=== PATIENT | male | born 1970 | race Caucasian/White ===

== ENCOUNTER 2016-08-24 09:11 | Emergency (ER) | payer MEDICARE, OTHER ==
[2016-08-24] MEDS ORDERED: KETOROLAC 30 MG/ML VIAL (J1885) As Ordered ONE (09:40)
--- NOTE | 2016-08-24 10:48 | REP ---
Three-view right shoulder series 08/24/2016 Indication: Trauma Findings: Patient has had previous distal apical resection and had history of previous acromioclavicular joint arthritis. There is no residual hypertrophic bone formation or subacromial spurring identified. Shoulder is without acute fracture or dislocation. The scapula is intact. Impression: Postsurgical changes with prior distal clavicle resection and previous subacromial decompression for impingement as noted on operative note 11/02/2003 for surgery performed at [facility] by Dr. Stanley There is no acute fracture, subluxation or dislocation within the right shoulder Signed by Maryana Natarajan MD 08/24/2016 10:40 A
--- NOTE | 2016-08-24 11:27 | EDDOCDS ---
Physician Documentation [facility] Name: Rafael Goldstein Age: 46 yrs Sex: Male : 1970 Arrival Date: 08/24/2016 Time: 09:11 Bed TR8 Private MD: Marcos Arevalo Disposition: 08/24/16 10:44 Discharged to Home/Self Care. Impression: Unspecified sprain of right shoulder joint. - Condition is Stable. - Discharge Instructions: Shoulder Pain, Aebm-ol-Liep, Shoulder Sprain. - Prescriptions for Mobic 7.5 mg Oral Tablet - take 1 tablet by ORAL route once daily take with food; 20 tablet. [place] 5- 325 mg Oral Tablet - take 1 tablet by ORAL route every 6 hours As needed MDD: 4 tabs; 20 tablet. - Medication Reconciliation, Local Pharmacy Hours form. - Follow up: Barry Stanley; When: 1 - 2 days; Reason: Further diagnostic work-up, Recheck today's complaints, Continuance of care. Follow up: Emergency Department; Reason: Worsening of conditions. - Problem is new. - Symptoms have improved. Historical: - Allergies: no known allergies; - Home Meds: 1. ramipril 2.5 mg Oral cap once daily 2. montelukast 10 mg oral tab once daily 3. Invokana 100 mg oral tab once daily 4. metformin 500 mg Oral Tb24 2 tabs once daily 5. levocetirizine 5 mg oral tab once daily 6. aspirin 81 mg Oral TbEC once daily - PMHx: Diabetes - NIDDM: controlled; - PSHx: right rotator cuff; right leg; bilateral wrists; - Social history: Smoking status: Patient states former smoker of tobacco. No barriers to communication noted, The patient speaks fluent Mauritian, Speaks appropriately for age. - Family history: Not pertinent. - : The pt / caregiver states he / she is not on anticoagulants. Home medication list is obtained from the patient. - Exposure Risk Screening:: None identified. Vital Signs: 08/24 09:13 BP 149 / 84; Pulse 86; Resp 18 S; Temp 97.6(O); Pulse Ox 98% on R/A; Weight 122.47 kg / dd6 270 lbs (R); Height 5 ft. 11 in. (180.34 cm) (R); 10:59 BP 120 / 76; Pulse 70; Resp 18; Temp 98.6(O); Pulse Ox 94% on R/A; Pain 0/10; ar3 11:24 Pain 1/10; ms18 09:13 Body Mass Index 37.66 (122.47 kg, 180.34 cm) dd6 Procedures: 10:42 Fracture care/splinting: Splint applied to right shoulder using sling, applied by ef1 nurse. Examined by me, post splint application: neurovascular intact, 2+ distal pulses palpable, brisk capillary refill noted, Patient tolerated well. MDM: 09:38 Ice Pack ordered. ef1 09:38 ketorolac 60 mg IM once ordered. ef1 09:39 Shoulder, Complete Ordered. EDMS 09:45 [facility] Payment Agreement was scanned into [employer] and attached to record. jp5 09:45 Financial registration complete. jp5 10:42 Sling ordered. ef1 Administered Medications: 09:45 Drug: ketorolac 60 mg [ketorolac 30 mg/mL (1 mL) injection solution (2 mL)] Route: IM; jc4 Site: right gluteus; 11:24 Follow up: Pain 1/10 Adult; Response: Pain is decreased ms18 Signatures: Dispatcher [employer] EDMS Adelia Brown PA-C PA-C ef1 Mena Paiz, RN RN jc4 Shaila Ortega,RN RN Gerri Blair RN RN ms18 Olive Walker jp5 The chart was reviewed and I authenticate all verbal orders and agree with the evaluation and treatment provided.Attachments: 09:45 [facility] Payment Agreement jp5 MTDD
--- NOTE | 2016-08-24 11:27 | EDDOCDS ---
Nurse's Notes [facility] Name: Rafael Goldstein Age: 46 yrs Sex: Male : 1970 Arrival Date: 08/24/2016 Time: 09:11 Bed TR8 Private MD: Marcos Arevalo Diagnosis: Unspecified sprain of right shoulder joint Presentation: 08/24 09:17 Presenting complaint: Patient states: while putting [place] decorations away in the ead attic yesterday, pt felt a pop in the right shoulder. Pt reports hx of right rotator cuff repair. Limited ROM to right shoulder. Adult Sepsis Screening: The patient does not have new or worsening altered mentation. Patient's respiratory rate is less than 22. Systolic blood pressure is greater than 100. Patient has a qSOFA score of 0- Negative Sepsis Screen. Suicide/Homicide risk assessment- the patient denies having any suicidal and/or homicidal ideations and does not present with any other emotional, behavioral or mental health complaints. Status: Patient is not a health equipment servicer or dependent. Transition of care: patient was not received from another setting of care. 09:17 Acuity: MARIANA Level 4 ead 09:17 Method Of Arrival: Walkin/Carried/Asstd ead Triage Assessment: 09:21 General: Appears in no apparent distress, uncomfortable, Behavior is appropriate for ead age, cooperative, pleasant. Pain: Location: anterior aspect of right shoulder and right bicep Pain currently is 6 out of 10 on a pain scale. Neurological: No deficits noted. Respiratory: Airway is patent Respiratory effort is even, unlabored. Derm: Skin is pink, warm & dry. Musculoskeletal: Range of motion limited in right shoulder Reports pain in anterior aspect of right shoulder and right bicep. 09:23 Pt Declines HIV testing. ead Historical: - Allergies: no known allergies; - Home Meds: 1. ramipril 2.5 mg Oral cap once daily 2. montelukast 10 mg oral tab once daily 3. Invokana 100 mg oral tab once daily 4. metformin 500 mg Oral Tb24 2 tabs once daily 5. levocetirizine 5 mg oral tab once daily 6. aspirin 81 mg Oral TbEC once daily - PMHx: Diabetes - NIDDM: controlled; - PSHx: right rotator cuff; right leg; bilateral wrists; - Social history: Smoking status: Patient states former smoker of tobacco. No barriers to communication noted, The patient speaks fluent Yoruba, Speaks appropriately for age. - Family history: Not pertinent. - : The pt / caregiver states he / she is not on anticoagulants. Home medication list is obtained from the patient. - Exposure Risk Screening:: None identified. Screenin:22 Screening information is obtained from the patient. Fall risk: No risks identified. ead Assistance ADL's: requires no assistance with activities of daily living. Abuse/DV Screen: The patient / caregiver reports he/she is: not in a situation that causes fear, pain or injury. Nutritional screening: No deficits noted. Advance Directives: Currently, there is a health care proxy, Caitlin Goldstein (). There is no active DNR order. There is no living will. There is no Power of Sewer. information regarding advance directives can be obtained from Caitlin Goldstein () [phone]. home support is adequate. Assessment: 09:45 General: Appears uncomfortable. Pain: Pain currently is 6 out of 10 on a pain scale. jc4 Neurological: Level of Consciousness is awake, alert, Oriented to person, place, time. Respiratory: Airway is patent Respiratory effort is even, unlabored, Respiratory pattern is regular, symmetrical. Derm: Skin is pink, warm & dry. Musculoskeletal: Reports pain in anterior aspect of right shoulder radiation to right tricep. 11:25 General: Appears in no apparent distress, comfortable, Behavior is appropriate for age, ms18 cooperative, pleasant. Pain: Location: right shoulder Pain currently is 1 out of 10 on a pain scale. Aggravated by movement. Neurological: No deficits noted. Respiratory: No deficits noted. Derm: Skin is pink, warm & dry. Vital Signs: 09:13 BP 149 / 84; Pulse 86; Resp 18 S; Temp 97.6(O); Pulse Ox 98% on R/A; Weight 122.47 kg dd6 (R); Height 5 ft. 11 in. (180.34 cm) (R); 10:59 BP 120 / 76; Pulse 70; Resp 18; Temp 98.6(O); Pulse Ox 94% on R/A; Pain 0/10; ar3 11:24 Pain 1/10; ms18 09:13 Body Mass Index 37.66 (122.47 kg, 180.34 cm) dd6 Vitals: 09:13 Log In Time: August 24, 2016 at 09:11. dd6 ED Course: 09:12 Patient visited by Galdino Mcbride PCA. dd6 09:12 Marcos Arevalo is Private Physician. dd6 09:12 Patient moved to Waiting dd6 09:14 Patient moved to Pre RCE dd6 09:19 Triage Initiated ead 09:23 Patient moved to Triage 2 ead 09:24 Adelia Brown PA-C is PHCP. ef1 09:25 Giselle Lucas MD is Attending Physician. ef1 09:25 Patient visited by Adelia Brown PA-C. ef1 09:42 The patient / caregiver is instructed regarding the plan of care and ED course. jc4 09:45 [facility] Payment Agreement was scanned into [employer] and attached to record. jp5 09:46 Patient moved to TR1 jc4 10:09 Patient visited by Adelia Brown PA-C. ef1 10:42 Patient visited by Adelia Brown PA-C. ef1 10:44 Barry Stanley is Referral Physician. ef1 10:45 Patient moved to PR1 / 25 jc4 10:59 Sling applied to right arm. ar3 11:00 Patient visited by Ashley Mccoy PCA. ar3 11:20 Shoulder, Complete Returned. EDMS 11:24 Patient moved to TR8 ms18 11:25 Accompanied by Family Member, Patient has correct armband on for positive ms18 identification. Property sent home with patient. :Personal belongings accompany Pt. 11:25 No IV's were initiated during this patient's visit. No procedures done that require ms18 assistance. Sling applied to right arm. Patient with positive distal sensation and brisk distal capillary refill after application. Administered Medications: 09:45 Drug: ketorolac 60 mg [ketorolac 30 mg/mL (1 mL) injection solution (2 mL)] Route: IM; jc4 Site: right gluteus; 11:24 Follow up: Pain /10 Adult; Response: Pain is decreased ms18 Order Results: Radiology Order: Shoulder, Complete Test: Shoulder, Complete REASON FOR EXAMINATION: Trauma; Three-view right shoulder series 08/24/2016; ; Indication: Trauma; ; Findings: Patient has had previous distal apical resection and had history of; previous acromioclavicular joint arthritis. There is no residual hypertrophic; bone formation or subacromial spurring identified. Shoulder is without acute; fracture or dislocation. The scapula is intact.; ; Impression:; ; Postsurgical changes with prior distal clavicle resection and previous; subacromial decompression for impingement as noted on operative note 11/02/2003; for surgery performed at [facility] by Dr. Stanley; ; There is no acute fracture, subluxation or dislocation within the right shoulder; ; ; Signed by; Maryana Natarajan MD 08/24/2016 10:40 A; Outcome: 10:44 Discharge ordered by Provider. ef1 11:25 Discharge Assessment: Patient awake, alert and oriented x 3. No cognitive and/or ms18 functional deficits noted. Patient verbalized understanding of disposition instructions. patient administered narcotics - no. The following High Risk Discharge criteria are identified: None. Discharged to home ambulatory, with family. Condition: good Condition: stable Condition: improved. Discharge instructions given to patient, Instructed on discharge instructions, follow up and referral plans. medication usage, Demonstrated understanding of instructions, medications, Pt was receptive of discharge instructions/ teaching. Prescriptions given X 2. No special radiology studies were completed. 11:26 Patient left the ED. ms18 Signatures: Dispatcher MedHost EDMS Galdino Mcbride, HEAD CHARGER HEAD CHARGER dd6 Adelia Brown, PAChristinaC PA-C ef1 Ashley Mccoy, HEAD CHARGER HEAD CHARGER ar3 Mena Paiz RN RN jc4 Shaila Ortega RN RN ead Smith, Mallory, RN RN ms18 Olive Walker jp5 [facility]
--- NOTE | 2016-08-26 12:27 | EDDOCDS ---
Physician Documentation [facility] Name: Rafael Goldstein Age: 46 yrs Sex: Male : 1970 Arrival Date: 08/24/2016 Time: 09:11 Bed TR8 Private MD: Marcos Arevalo Disposition: 08/24/16 10:44 Discharged to Home/Self Care. Impression: Unspecified sprain of right shoulder joint. - Condition is Stable. - Discharge Instructions: Shoulder Pain, Dsrm-mi-Htoz, Shoulder Sprain. - Prescriptions for Mobic 7.5 mg Oral Tablet - take 1 tablet by ORAL route once daily take with food; 20 tablet. [place] 5- 325 mg Oral Tablet - take 1 tablet by ORAL route every 6 hours As needed MDD: 4 tabs; 20 tablet. - Medication Reconciliation, Local Pharmacy Hours form. - Follow up: Barry Stanley; When: 1 - 2 days; Reason: Further diagnostic work-up, Recheck today's complaints, Continuance of care. Follow up: Emergency Department; Reason: Worsening of conditions. - Problem is new. - Symptoms have improved. Historical: - Allergies: no known allergies; - Home Meds: 1. ramipril 2.5 mg Oral cap once daily 2. montelukast 10 mg oral tab once daily 3. Invokana 100 mg oral tab once daily 4. metformin 500 mg Oral Tb24 2 tabs once daily 5. levocetirizine 5 mg oral tab once daily 6. aspirin 81 mg Oral TbEC once daily - PMHx: Diabetes - NIDDM: controlled; - PSHx: right rotator cuff; right leg; bilateral wrists; - Social history: Smoking status: Patient states former smoker of tobacco. No barriers to communication noted, The patient speaks fluent [place], Speaks appropriately for age. - Family history: Not pertinent. - : The pt / caregiver states he / she is not on anticoagulants. Home medication list is obtained from the patient. - Exposure Risk Screening:: None identified. Vital Signs: 08/24 09:13 BP 149 / 84; Pulse 86; Resp 18 S; Temp 97.6(O); Pulse Ox 98% on R/A; Weight 122.47 kg / dd6 270 lbs (R); Height 5 ft. 11 in. (180.34 cm) (R); 10:59 BP 120 / 76; Pulse 70; Resp 18; Temp 98.6(O); Pulse Ox 94% on R/A; Pain 0/10; ar3 11:24 Pain 1/10; ms18 09:13 Body Mass Index 37.66 (122.47 kg, 180.34 cm) dd6 Procedures: 10:42 Fracture care/splinting: Splint applied to right shoulder using sling, applied by ef1 nurse. Examined by me, post splint application: neurovascular intact, 2+ distal pulses palpable, brisk capillary refill noted, Patient tolerated well. MDM: 09:38 Ice Pack ordered. ef1 09:38 ketorolac 60 mg IM once ordered. ef1 09:39 Shoulder, Complete Ordered. EDMS 09:45 [facility] Payment Agreement was scanned into [employer] and attached to record. jp5 09:45 Financial registration complete. jp5 10:42 Sling ordered. ef1 14:44 T-Sheet-- Draft Copy was scanned into [employer] and attached to record. gb 14:44 Radiology Report was scanned into [employer] and attached to record. gb Administered Medications: 09:45 Drug: ketorolac 60 mg [ketorolac 30 mg/mL (1 mL) injection solution (2 mL)] Route: IM; jc4 Site: right gluteus; 11:24 Follow up: Pain 1/10 Adult; Response: Pain is decreased ms18 Signatures: Dispatcher [employer] EDSC Adrianna Chaney, Ike Ramires gb Adelia Brown, PA-C PA-C ef1 Mena Paiz RN RN jc4 Shaila Ortega RN RN ead Smith, Mallory, RN RN ms18 Olive Walker jp5 The chart was reviewed and I authenticate all verbal orders and agree with the evaluation and treatment provided.Attachments: 09:45 [facility] Payment Agreement 5 14:44 T-Sheet-- Draft Copy gb Chart Complete MTDD
--- NOTE | 2016-08-26 12:27 | EDDOCDS ---
Nurse's Notes [facility] Name: Rafael Goldstein Age: 46 yrs Sex: Male : 1970 Arrival Date: 08/24/2016 Time: 09:11 Bed TR8 Private MD: Marcos Arevalo Diagnosis: Unspecified sprain of right shoulder joint Presentation: 08/24 09:17 Presenting complaint: Patient states: while putting [place] decorations away in the ead attic yesterday, pt felt a pop in the right shoulder. Pt reports hx of right rotator cuff repair. Limited ROM to right shoulder. Adult Sepsis Screening: The patient does not have new or worsening altered mentation. Patient's respiratory rate is less than 22. Systolic blood pressure is greater than 100. Patient has a qSOFA score of 0- Negative Sepsis Screen. Suicide/Homicide risk assessment- the patient denies having any suicidal and/or homicidal ideations and does not present with any other emotional, behavioral or mental health complaints. Status: Patient is not a postal service window clerk or dependent. Transition of care: patient was not received from another setting of care. 09:17 Acuity: MARIANA Level 4 ead 09:17 Method Of Arrival: Walkin/Carried/Asstd ead Triage Assessment: 09:21 General: Appears in no apparent distress, uncomfortable, Behavior is appropriate for ead age, cooperative, pleasant. Pain: Location: anterior aspect of right shoulder and right bicep Pain currently is 6 out of 10 on a pain scale. Neurological: No deficits noted. Respiratory: Airway is patent Respiratory effort is even, unlabored. Derm: Skin is pink, warm & dry. Musculoskeletal: Range of motion limited in right shoulder Reports pain in anterior aspect of right shoulder and right bicep. 09:23 Pt Declines HIV testing. ead Historical: - Allergies: no known allergies; - Home Meds: 1. ramipril 2.5 mg Oral cap once daily 2. montelukast 10 mg oral tab once daily 3. Invokana 100 mg oral tab once daily 4. metformin 500 mg Oral Tb24 2 tabs once daily 5. levocetirizine 5 mg oral tab once daily 6. aspirin 81 mg Oral TbEC once daily - PMHx: Diabetes - NIDDM: controlled; - PSHx: right rotator cuff; right leg; bilateral wrists; - Social history: Smoking status: Patient states former smoker of tobacco. No barriers to communication noted, The patient speaks fluent Malay, Speaks appropriately for age. - Family history: Not pertinent. - : The pt / caregiver states he / she is not on anticoagulants. Home medication list is obtained from the patient. - Exposure Risk Screening:: None identified. Screenin:22 Screening information is obtained from the patient. Fall risk: No risks identified. ead Assistance ADL's: requires no assistance with activities of daily living. Abuse/DV Screen: The patient / caregiver reports he/she is: not in a situation that causes fear, pain or injury. Nutritional screening: No deficits noted. Advance Directives: Currently, there is a health care proxy, Caitlin Goldstein (). There is no active DNR order. There is no living will. There is no Power of Field Merchandiser. information regarding advance directives can be obtained from Caitlin Goldstein () [phone]. home support is adequate. Assessment: 09:45 General: Appears uncomfortable. Pain: Pain currently is 6 out of 10 on a pain scale. jc4 Neurological: Level of Consciousness is awake, alert, Oriented to person, place, time. Respiratory: Airway is patent Respiratory effort is even, unlabored, Respiratory pattern is regular, symmetrical. Derm: Skin is pink, warm & dry. Musculoskeletal: Reports pain in anterior aspect of right shoulder radiation to right tricep. 11:25 General: Appears in no apparent distress, comfortable, Behavior is appropriate for age, ms18 cooperative, pleasant. Pain: Location: right shoulder Pain currently is 1 out of 10 on a pain scale. Aggravated by movement. Neurological: No deficits noted. Respiratory: No deficits noted. Derm: Skin is pink, warm & dry. Vital Signs: 09:13 BP 149 / 84; Pulse 86; Resp 18 S; Temp 97.6(O); Pulse Ox 98% on R/A; Weight 122.47 kg dd6 (R); Height 5 ft. 11 in. (180.34 cm) (R); 10:59 BP 120 / 76; Pulse 70; Resp 18; Temp 98.6(O); Pulse Ox 94% on R/A; Pain 0/10; ar3 11:24 Pain 1/10; ms18 09:13 Body Mass Index 37.66 (122.47 kg, 180.34 cm) dd6 Vitals: 09:13 Log In Time: August 24, 2016 at 09:11. dd6 ED Course: 09:12 Patient visited by Galdino Mcbride PCA. dd6 09:12 Marcos Arevalo is Private Physician. dd6 09:12 Patient moved to Waiting dd6 09:14 Patient moved to Pre RCE dd6 09:19 Triage Initiated ead 09:23 Patient moved to Triage 2 ead 09:24 Adelia Brown PA-C is PHCP. ef1 09:25 Giselle Lucas MD is Attending Physician. ef1 09:25 Patient visited by Adelia Brown PA-C. ef1 09:42 The patient / caregiver is instructed regarding the plan of care and ED course. jc4 09:45 [facility] Payment Agreement was scanned into [employer] and attached to record. jp5 09:46 Patient moved to TR1 jc4 10:09 Patient visited by Adelia Brown PA-C. ef1 10:42 Patient visited by Adelia Brown PA-C. ef1 10:44 Barry Stanley is Referral Physician. ef1 10:45 Patient moved to PR1 / 25 jc4 10:59 Sling applied to right arm. ar3 11:00 Patient visited by Ashley Mccoy PCA. ar3 11:20 Shoulder, Complete Returned. EDMS 11:24 Patient moved to TR8 ms18 11:25 Accompanied by Family Member, Patient has correct armband on for positive ms18 identification. Property sent home with patient. :Personal belongings accompany Pt. 11:25 No IV's were initiated during this patient's visit. No procedures done that require ms18 assistance. Sling applied to right arm. Patient with positive distal sensation and brisk distal capillary refill after application. 14:44 T-Sheet-- Draft Copy was scanned into [employer] and attached to record. gb 14:44 Radiology Report was scanned into [employer] and attached to record. gb Administered Medications: 09:45 Drug: ketorolac 60 mg [ketorolac 30 mg/mL (1 mL) injection solution (2 mL)] Route: IM; jc4 Site: right gluteus; 11:24 Follow up: Pain 08/18 Adult; Response: Pain is decreased ms18 Order Results: Radiology Order: Shoulder, Complete Test: Shoulder, Complete REASON FOR EXAMINATION: Trauma; Three-view right shoulder series 08/24/2016; ; Indication: Trauma; ; Findings: Patient has had previous distal apical resection and had history of; previous acromioclavicular joint arthritis. There is no residual hypertrophic; bone formation or subacromial spurring identified. Shoulder is without acute; fracture or dislocation. The scapula is intact.; ; Impression:; ; Postsurgical changes with prior distal clavicle resection and previous; subacromial decompression for impingement as noted on operative note 11/02/2003; for surgery performed at [facility] by Dr. Stanley; ; There is no acute fracture, subluxation or dislocation within the right shoulder; ; ; Signed by; Maryana Natarajan MD 08/24/2016 10:40 A; Outcome: 10:44 Discharge ordered by Provider. ef1 11:25 Discharge Assessment: Patient awake, alert and oriented x 3. No cognitive and/or ms18 functional deficits noted. Patient verbalized understanding of disposition instructions. patient administered narcotics - no. The following High Risk Discharge criteria are identified: None. Discharged to home ambulatory, with family. Condition: good Condition: stable Condition: improved. Discharge instructions given to patient, Instructed on discharge instructions, follow up and referral plans. medication usage, Demonstrated understanding of instructions, medications, Pt was receptive of discharge instructions/ teaching. Prescriptions given X 2. No special radiology studies were completed. 11:26 Patient left the ED. ms18 Signatures: Dispatcher [employer] EDMS Adrianna Chaney, Reg Reg gb Galdino Mcbride, RAILROAD SUPERVISOR OF ENGINES RAILROAD SUPERVISOR OF ENGINES dd6 Adelia Brown, PA-C PA-C ef1 Ashley Mccoy, RAILROAD SUPERVISOR OF ENGINES RAILROAD SUPERVISOR OF ENGINES ar3 Mena Paiz RN RN jc4 Shaila Ortega,[place] RN Gerri Blair RN RN ms18 Olive Walker jp5 Chart Complete MTDD
--- NOTE | 2016-08-26 12:27 | EDDOCDS ---
Physician Documentation [facility] Name: Rafael Goldstein Age: 46 yrs Sex: Male : 1970 Arrival Date: 08/24/2016 Time: 09:11 Bed TR8 Private MD: Marcos Arevalo Disposition: 08/24/16 10:44 Discharged to Home/Self Care. Impression: Unspecified sprain of right shoulder joint. - Condition is Stable. - Discharge Instructions: Shoulder Pain, [id number], Shoulder Sprain. - Prescriptions for Mobic 7.5 mg Oral Tablet - take 1 tablet by ORAL route once daily take with food; 20 tablet. Charlotte 5- 325 mg Oral Tablet - take 1 tablet by ORAL route every 6 hours As needed MDD: 4 tabs; 20 tablet. - Medication Reconciliation, Local Pharmacy Hours form. - Follow up: Barry Stanley; When: 1 - 2 days; Reason: Further diagnostic work-up, Recheck today's complaints, Continuance of care. Follow up: Emergency Department; Reason: Worsening of conditions. - Problem is new. - Symptoms have improved. Historical: - Allergies: no known allergies; - Home Meds: 1. ramipril 2.5 mg Oral cap once daily 2. montelukast 10 mg oral tab once daily 3. Invokana 100 mg oral tab once daily 4. metformin 500 mg Oral Tb24 2 tabs once daily 5. levocetirizine 5 mg oral tab once daily 6. aspirin 81 mg Oral TbEC once daily - PMHx: Diabetes - NIDDM: controlled; - PSHx: right rotator cuff; right leg; bilateral wrists; - Social history: Smoking status: Patient states former smoker of tobacco. No barriers to communication noted, The patient speaks fluent Bahraini, Speaks appropriately for age. - Family history: Not pertinent. - : The pt / caregiver states he / she is not on anticoagulants. Home medication list is obtained from the patient. - Exposure Risk Screening:: None identified. Vital Signs: 08/24 09:13 BP 149 / 84; Pulse 86; Resp 18 S; Temp 97.6(O); Pulse Ox 98% on R/A; Weight 122.47 kg / dd6 270 lbs (R); Height 5 ft. 11 in. (180.34 cm) (R); 10:59 BP 120 / 76; Pulse 70; Resp 18; Temp 98.6(O); Pulse Ox 94% on R/A; Pain 0/10; ar3 11:24 Pain 1/10; ms18 09:13 Body Mass Index 37.66 (122.47 kg, 180.34 cm) dd6 Procedures: 10:42 Fracture care/splinting: Splint applied to right shoulder using sling, applied by ef1 nurse. Examined by me, post splint application: neurovascular intact, 2+ distal pulses palpable, brisk capillary refill noted, Patient tolerated well. MDM: 09:38 Ice Pack ordered. ef1 09:38 ketorolac 60 mg IM once ordered. ef1 09:39 Shoulder, Complete Ordered. EDMS 09:45 [facility] [place] Agreement was scanned into payworks and attached to record. jp5 09:45 Financial registration complete. jp5 10:42 Sling ordered. ef1 14:44 T-Sheet-- Draft Copy was scanned into payworks and attached to record. gb 14:44 Radiology Report was scanned into payworks and attached to record. gb Administered Medications: 09:45 Drug: ketorolac 60 mg [ketorolac 30 mg/mL (1 mL) injection solution (2 mL)] Route: IM; jc4 Site: right gluteus; 11:24 Follow up: Pain 1/10 Adult; Response: Pain is decreased ms18 Signatures: Dispatcher [employer] EDWI Adrianna Chaney, Ike Ramires gb Adelia Brown, PA-C PA-C ef1 Mena Paiz RN RN jc4 Shaila Ortega RN RN ead Smith, Mallory, RN RN ms18 Olive Walker jp5 The chart was reviewed and I authenticate all verbal orders and agree with the evaluation and treatment provided.Attachments: 09:45 [facility] Payment Agreement 5 14:44 T-Sheet-- Draft Copy gb Chart Complete MTDD
== END 2016-08-24 11:26 | disposition home or self-care (01) ==
LOC: M ED 09:11
DX: S43.401A Unspecified sprain of right shoulder joint, initial encounter (principal); E11.9 Type 2 diabetes mellitus without complications; Z87.891 Personal history of nicotine dependence; Z79.899 Other long term (current) drug therapy; X58.XXXA Exposure to other specified factors, initial encounter; Y92.019 Unspecified place in single-family (private) house as the place of occurrence of the external cause; Y93.89 Activity, other specified; Y99.9 Unspecified external cause status
CPT/HCPCS: 73030; 96372; 99284; J1885

== ENCOUNTER → 2016-10-01 | Outpatient (REF) | payer MEDICARE, OTHER ==
[2016-10-01 12:33] LABS: BLOOD UREA NITROGEN 19 MG/DL (7-18); CREATININE FOR GFR 0.94 MG/DL (0.70-1.30); GLOMERULAR FILTRATION RATE > 60.0 (>60)
== END ==
LOC: M LABDRAW1 11:46
PROVIDERS: ATTEND Orthopaedic Surgery
DX: Z01.812 Encounter for preprocedural laboratory examination (principal)

== ENCOUNTER → 2017-10-22 | Outpatient (CLI) | payer OTHER, MEDICARE ==
[2017-10-22 10:54] LABS: ALBUMIN/GLOBULIN RATIO 1.33 (1.00-1.93); ALKALINE PHOSPHATASE 69 U/L (45-117); ALT/SGPT 51 U/L (12-78); ANION GAP 7 MEQ/L (8-16); AST/SGOT 24 U/L (7-37); BILIRUBIN,TOTAL 0.6 MG/DL (0.2-1.0); BLOOD UREA NITROGEN 27 MG/DL (7-18); CALCIUM LEVEL 8.8 MG/DL (8.5-10.1); CARBON DIOXIDE LEVEL 27 MEQ/L (21-32); CHLORIDE LEVEL 108 MEQ/L (98-107); CREATININE FOR GFR 0.91 MG/DL (0.70-1.30); GLOMERULAR FILTRATION RATE > 60.0 (>60); GLUCOSE, FASTING 102 MG/DL (70-100); POTASSIUM SERUM 4.3 MEQ/L (3.5-5.1); SODIUM LEVEL 142 MEQ/L (136-145)
== END ==
LOC: M LAB 10:09
DX: M54.12 Radiculopathy, cervical region (principal)
CPT/HCPCS: 80053

== ENCOUNTER → 2019-01-25 | Outpatient (REF) | payer MEDICARE, OTHER ==
[2019-01-25 12:49] LABS: BASO % 0.4 % (0.0-1.0); EOS # 0.1 10^3/uL (0.0-0.50); EOS % 1.9 % (0.0-3.0); HEMATOCRIT 49.3 % (42.0-52.0); HEMOGLOBIN 16.9 g/dl (13.5-17.5); LYMPH # 2.2 10^3/uL (1.5-4.5); LYMPH % 32.4 % (24.0-44.0); MEAN CORPUSCULAR HEMOGLOBIN 30.8 pg (27.0-33.0); MEAN CORPUSCULAR HGB CONC 34.3 g/dl (32.0-36.5); MEAN CORPUSCULAR VOLUME 89.8 fl (80.0-96.0); MONO # 0.5 10^3/uL (0.0-0.8); MONO % 7.7 % (0.0-5.0); NEUTROPHILS # 3.9 10^3/uL (1.8-7.7); NEUTROPHILS % 57.3 % (36.0-66.0); PLATELET COUNT, AUTOMATED 231 10^3/uL (150-450); RED BLOOD COUNT 5.49 10^6/uL (4.30-6.10); WHITE BLOOD COUNT 6.9 10^3/uL (4.0-10.0)
[2019-01-25 12:55] LABS: ALBUMIN 3.5 GM/DL (3.2-5.2); ALT/SGPT 35 U/L (12-78); BILIRUBIN,DIRECT 0.1 MG/DL (0.0-0.2); BILIRUBIN,TOTAL 0.5 MG/DL (0.2-1.0); BLOOD UREA NITROGEN 23 MG/DL (7-18); CALCIUM LEVEL 9.2 MG/DL (8.5-10.1); CARBON DIOXIDE LEVEL 24 MEQ/L (21-32); CHLORIDE LEVEL 109 MEQ/L (98-107); CREATININE FOR GFR 0.92 MG/DL (0.70-1.30); GLOMERULAR FILTRATION RATE > 60.0 (>60); GLUCOSE, FASTING 157 MG/DL (70-100); POTASSIUM SERUM 4.3 MEQ/L (3.5-5.1); SODIUM LEVEL 140 MEQ/L (136-145); TOTAL PROTEIN 6.9 GM/DL (6.4-8.2)
== END ==
LOC: M LABDRAW1 10:48
PROVIDERS: ATTEND Orthopaedic Surgery
DX: Z47.89 Encounter for other orthopedic aftercare (principal)

== ENCOUNTER 2019-08-24 16:06 | Emergency (ER) | payer MEDICARE ==
[~2019-08-24] VITALS: Ht 180.3 cm; Wt 129.2 kg
[2019-08-24 16:52] LABS: VENOUS BASE EXCESS -2.8 (-2.0-2.0); VENOUS O2 SATURATION 97.3 % (60.0-80.0); VENOUS PARTIAL PRESSURE CO2 34.6 mmHg (38.0-50.0); VENOUS PARTIAL PRESSURE O2 97.2 mmHg (30.0-50.0); VENOUS PH 7.402 UNITS (7.330-7.430); VENOUS STANDARD HCO3 22.2 MEQ/L; VENOUS TOTAL CO2 22.1 MEQ/L (24.0-28.0)
[2019-08-24 16:55] LABS: BASO % 0.5 % (0.0-1.0); EOS # 0.1 10^3/uL (0.0-0.5); HEMATOCRIT 48.7 % (42.0-52.0); HEMOGLOBIN 16.6 g/dl (13.5-17.5); LYMPH # 2.3 10^3/uL (1.5-5.0); LYMPH % 27.3 % (24.0-44.0); MEAN CORPUSCULAR HEMOGLOBIN 29.9 pg (27.0-33.0); MEAN CORPUSCULAR HGB CONC 34.1 g/dl (32.0-36.5); MEAN CORPUSCULAR VOLUME 87.7 fl (80.0-96.0); MONO # 0.6 10^3/uL (0.0-0.8); MONO % 7.6 % (0.0-5.0); NEUTROPHILS # 5.2 10^3/uL (1.5-8.5); NEUTROPHILS % 63.2 % (36.0-66.0); PLATELET COUNT, AUTOMATED 295 10^3/uL (150-450); RED BLOOD COUNT 5.55 10^6/uL (4.30-6.10); WHITE BLOOD COUNT 8.3 10^3/uL (4.0-10.0)
[2019-08-24] MEDS ORDERED: METF-791 PO ×2 (17:18→18:33)
[2019-08-24] MEDS ORDERED: RAMI1CAP22 PO (17:18)
[2019-08-24] MEDS ORDERED: MONT10TA2 PO (17:18)
[2019-08-24] MEDS ORDERED: CYCL10TA PO (17:18)
[2019-08-24] MEDS ORDERED: OMEP-221 PO (17:18)
[2019-08-24] MEDS ORDERED: LEVOTAB10 PO (17:18)
[2019-08-24] MEDS ORDERED: FLUTISP INH (17:18)
[2019-08-24 17:35] LABS: HEMOGLOBIN A1c 9.7 %
--- NOTE | 2019-08-24 18:28 | REP ---
CHEST, TWO VIEWS: Two views of the chest are performed. There are no prior studies for comparison. I see no acute infiltrate or pulmonary edema. Heart is not significantly enlarged. Mediastinal silhouette is unremarkable. Metallic hardware is seen in the cervical spine. There are mild degenerative changes of the spine. IMPRESSION: No acute pulmonary disease. Electronically Signed by Chace Reyna MD 08/24/2019 07:17 P
[2019-08-24 18:35] VITALS: BP 124/84
--- NOTE | 2019-08-24 21:18 | ECGEPIP ---
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
== END 2019-08-24 19:26 | disposition home or self-care (01) ==
LOC: M ED 16:06
DX: E11.65 Type 2 diabetes mellitus with hyperglycemia (principal); I10 Essential (primary) hypertension; J30.89 Other allergic rhinitis; Z79.899 Other long term (current) drug therapy; Z79.84 Long term (current) use of oral hypoglycemic drugs

== ENCOUNTER → 2020-09-11 | Outpatient (CLI) | payer OTHER ==
[~2020-09-11] MED LIST: CYCL-707 PO; FLUTISP INH; LEVOTAB10 PO; METF-838 PO; MONT5TAB2 PO; OMEP-221 PO; RAMI1CAP22 PO
--- NOTE | 2020-09-12 00:40 | ECWPNPC ---
PATIENT NAME: EDNA KEITH : 1970 GENDER: MALE VISIT DATE: 09/11/2020 DISCHARGE DATE: 09/11/20 1406 VISIT LOCKED DATE TIME: PHYSICIAN: CAMILO MOYA RESOURCE: CAMILO MOYA REASON FOR APPOINTMENT 1. NECK HISTORY OF PRESENT ILLNESS DEPRESSION SCREENING: PHQ-2 (2015 EDITION) LITTLE INTEREST OR PLEASURE IN DOING THINGS?NOT AT ALL FEELING DOWN, DEPRESSED, OR HOPELESS?NOT AT ALL TOTAL SCORE0 GENERAL: 50-YEAR-OLD GENTLEMAN REFERRED BY [facility] FOR EVALUATION OF PERSISTENT NECK AND RIGHT UPPER ARM PAIN. THIS BEGAN AFTER A WORK RELATED INJURY ESTABLISHED IN 2001. HE FELL OFF A LADDER WHILE WORKING FOR A COMPANY IN [place], [place] AND HIT A METAL BAR UNDER RIGHT ARMPIT. SUBSEQUENTLY UNDERWENT 2 SHOULDER SURGERIES AND IN JULY 2019 HAD CERVICAL FUSION. REPORTING PERSISTENT MUSCLE TIGHTNESS IN THE NECK AND RIGHT SHOULDER SINCE CERVICAL FUSION. PAIN IS AGGRAVATED IN THIS REGION WITH RANGE OF JOINT MOTION OF HIS ARMS OR NECK. REVIEWED MRI OF THE CERVICAL SPINE AND DISCUSSED TREATMENT OPTIONS. -. FALL RISK SCREENING: SCREENING :NO FALLS REPORTED IN THE LAST YEAR PAIN SCREENING: PATIENT HAS A COMPLAINT OF ACUTE OR CHRONIC PAIN :YES LOCATION OF PAIN:NECK INTENSITY OF PAIN (SCALE OF 1 TO 10):3 WHAT DOES YOUR PAIN FEEL LIKE:ACHING, THROBBING, OTHER TIGHTNESS DURATION:CONTINOUS, CONSTANT, AWAKENS FROM SLEEP PAIN IS INCREASED BY:ACTIVITIES, PROLONGED STANDING PAIN IS DECREASED BY:OTHERS HEAT, THERAPEUTIC EXERCISE NURSING NOTE: -. PAIN CENTER INTAKE QUESTIONS: DO YOU HAVE A HISTORY OF MRSA? :NO DO YOU TAKE A BLOOD THINNERS? :NO DO YOU HAVE ANY BLEEDING DISORDERS? :NO ANY NEW NUMBNESS OR WEAKNESS IN YOUR LEGS OR ARMS? :NO ANY PACEMAKER,DEFIBRILLATOR, OR DORSAL COLUMN STIMULATOR? :NO DO YOU HAVE ANY RASHES OR OPEN SORES? :NO ARE YOU ALLERGIC TO IV DYE? :NO ARE YOU DIABETIC? :YES ANY NEW PROBLEMS WITH YOUR MEDICATIONS? :NO HAVE YOU RECEIVED A VACCINE IN THE PAST 30 DAYS? :NO DO YOU PLAN TO RECEIVE A VACCINE IN THE NEXT 21 DAYS? :NO DO YOU NEED ANY PRESCRIPTION? :NO DO YOU TAKE ANY IMMUNOSUPPRESSIVE MEDICATIONS? :NO IS THERE A CHANCE YOU COULD BE ? :NO ARE YOU BREAST FEEDING? :NO CURRENT MEDICATIONS TAKING RAMIPRIL 10 MG CAPSULE ORAL TAKING MONTELUKAST SODIUM 10 MG TABLET ORAL TAKING OMEPRAZOLE 40 MG CAPSULE DELAYED RELEASE ORAL TAKING LEVOCETIRIZINE DIHYDROCHLORIDE 5 MG TABLET ORAL TAKING FLUTICASONE PROPIONATE 50 MCG/ACT SUSPENSION NASAL TAKING ATORVASTATIN CALCIUM 20 MG TABLET 1 TABLET ORALLY DAILY TAKING METFORMIN HCL ER 500 MG TABLET EXTENDED RELEASE 24 HOUR ORAL FOUR TIMES DAILY TAKING OXYCODONE-ACETAMINOPHEN 325-5 MG TABLET 1 TABLET NEEDED ORALLY QHS TAKING FLEXERIL 10 MG 30 10 MG TABLETS ONE TABLET ORALLY EVERY 8 HOURS PRN PAIN TAKING IBUPROFEN 1 TAB ORAL EVERY 8 HOURS PRN NOT-TAKING ROBAXIN 500 MG TABLET 1.5 TABLETS ORALLY EVERY 4 HRS NOT-TAKING LIDODERM 5 % PATCH 1 PATCH REMOVE AFTER 12 HOURS EXTERNALLY ONCE A DAY NOT-TAKING INVOKANA 100 MG TABLET 1 TABLET BEFORE FIRST MEAL ORALLY ONCE A DAY MEDICATION LIST REVIEWED AND RECONCILED WITH THE PATIENT PAST MEDICAL HISTORY DIABETES TYPE II HYPERTENSION MULTIPLE BCC ALLERGIES SHELLFISH : UNKNOWN SURGICAL HISTORY CARPAL TUNNEL RELEASE BILATERAL RIGHT SHOULDER SURGERY CERVICAL SURGERY RIGHT LEG RECONSTRUCTION FAMILY HISTORY FATHER: ALIVE MOTHER: ALIVE SIBLINGS: ALIVE DAUGHTER(S): ALIVE 1 BROTHER(S) , 1 SISTER(S) . 3DAUGHTER(S) . SOCIAL HISTORY GENERAL: TOBACCO USE ARE YOU A:NONSMOKER LATEX QUESTIONNAIRE LATEX ALLERGY : HAVE YOU EVER DEVELOPED ANY TYPE OF REACTION AFTER HANDLING LATEX PRODUCTS SUCH RUBBER GLOVES, CONDOMS, DIAPHRAGMS, BALLOONS, SOCKS, OR UNDERWEAR?NO LATEX ALLERGY : HAVE YOU EVER DEVELOPED ANY TYPE OF REACTION DURING OR AFTER DENTAL APPOINTMENT, VAGINAL/RECTAL EXAMINATION, SURGICAL PROCEDURE, OR ANY OTHER EXPOSURE?NO LATEX RISK : HAVE YOU EVER HAD ANY DIFFICULTY BREATHING OR HIVES AFTER EATING OR HANDLING ANY FRUITS, OR VEGETABLES; SUCH KIWI, BANANAS, STONE FRUITS, OR CHESTNUTSNO LATEX RISK : DO YOU HAVE A PREVIOUS PERSONAL HISTORY OF MORE THAN NINE SURGERIES, SPINA BIFIDA, OR REPEATED CATHERIZATIONS? NO LATEX RISK : ARE YOU FREQUENTLY EXPOSED TO LATEX PRODUCTS IN YOUR OCCUPATION?NO DATE ASKED : 09/11/2020 ALCOHOL USE: YES. OCCASSIONAL. RECREATIONAL DRUG USE DRUG USE?NO LEARNING BARRIERS / SPECIAL NEEDS BARRIERS TO LEARNING?NO HEARING IMPAIRED?NO VISION IMPAIRED?YES :CORRECTIVE LENSES COGNITIVELY IMPAIRED?NO READINESS TO LEARN?YES LEARNING PREFERENCES?NO LEARNING CAPABILITIES PRESENT?YES EMOTIONAL BARRIERS?NO SPECIAL DEVICES?NO FINE JEWELRY SALES ASSOCIATE NEEDED?NO HOSPITALIZATION/MAJOR DIAGNOSTIC PROCEDURE HOSPITALIZATIONS FOR SURGERIES LISTED ABOVE REVIEW OF SYSTEMS CONSTITUTIONAL: ANY RECENT FEVER NO . CHILLS NO . WEIGHT CHANGE OF UNKNOWN REASONS NO . MUSCULOSKELETAL: ANY UNUSUAL JOINT PAIN OR SWELLING NOT MENTIONED NO . SYSTEMIC LUPUS NO . ANY NEUROMUSCULAR DISORDER NOT MENTIONED NO . LYME DISEASE NO . GASTROENTEROLOGY: ANY NEW CHANGE IN BOWEL CONTROL? NO . HISTORY OF LIVER DISORDER NOT MENTIONED NO . HISTORY OF UNUSUAL ABDOMINAL PAIN OR CRAMPING NOT MENTIONED NO . NO CONSTIPATION. GENITOURINARY: ANY NEW CHANGE IN BLADDER CONTROL? NO . ANY RENAL/KIDNEY CONDITON NOT MENTIONED NO . NEUROLOGY: HISTORY OF TBI NOT MENTIONED NO . OTHER NEW NUMBNESS OR PAIN PATTERNS NOT MENTIONED NO . NEW ONSET DIZZINESS OR NEUROLOGICAL CHANGES NOT MENTIONED NO . HISTORY OF SEVERE HEADACHES NOT MENTIONED NO . HISTORY OF STROKE OR NEUROLOGICAL DISORDER NOT MENTIONED NO . CARDIOLOGY: HEART SURGERY NO . CONGESTIVE HEART FAILURE/FLUID OVERLOAD NOT MENTIONED NO . HISTORY OF CHEST PAIN,IRREGULAR HEART BEAT NOT MENTIONED NO . RESPIRATORY: SHORTNESS OF BREATH ON EXERTION, WHEEZES, UNUSUAL COUGH NOT MENTIONED NO . ENDOCRINOLOGY: ADRENAL GLAND OR THYROID DISORDERS NOT MENTIONED NO . UNUSUAL URINATION, DIZZINESS OR LETHARGY NOT MENTIONED NO . VITAL SIGNS WT 291.8 LBS, HT 70 IN, BMI 41.86 INDEX, BP 140/90 MM HG, HR 95 /MIN, RR 18 /MIN, TEMP 96.7 F, OXYGEN SAT % 97, SAFE IN ENV? (Y/N) YES, REVIEWED BY: KAMERON BAUER MA. EXAMINATION GENERAL EXAMINATION: GENERALNO ACUTE DISTRESS, WELL NOURISHED AND HYDRATED. PSYCHAPPROPRIATE MOOD AND AFFECT . FACE:UNREMARKABLE. NECK:NO LYMPHADENOPATHY, SUPPLE. LUNGS:CLEAR TO AUSCULTATION BILATERALLY, NO WHEEZES, RHONCHI, RALES. HEART:NO MURMURS, REGULAR RATE AND RHYTHM. MUSCULOSKELETAL: MUSCLE STRENGTH TESTING 5/5 BILATERAL UPPER EXTREMITIES. EQUAL STRONG ASSISTANT GROCERY STRENGTH BILATERAL HANDS TRIGGER POINTS: NOTED OVER RIGHT SHOULDER. PAIN IN THIS REGION IS AGGRAVATED WITH RANGE OF JOINT MOTION OF THE RIGHT ARM.. CERVICAL: TRIGGER POINTS: ELICITED WITH PALPATION OVER CERVICAL PARASPINAL BILATERALLY RIGHT GREATER THAN LEFT. PAIN IN THIS REGION IS AGGRAVATED WITH RANGE OF JOINT MOTION OF THE ARMS OR NECK.. ASSESSMENTS MYALGIA OF MUSCLE OF NECK - M79.18 (PRIMARY) MYALGIA, OTHER SITE - M79.18 TREATMENT MYALGIA OF MUSCLE OF NECK NOTES: WORKMEN'S COMP REQUEST TRIGGER POINT INJECTIONS NECK RIGHT SHOULDER. CLINICAL NOTES: 09/11/2020 PRE-PROCEDURE AND PROCEDURE INFORMATION PROVIDED TO PATIENT. PATIENT VERBALIZED UNDERSTANDING. RASHMI BAUER MA. REFERRAL TO:PHYSICAL THERAPIST REASON:2XWK X 6 WKS,MASSAGE,MYOFASCIAL RELEASE,SPRAY AND STRETCH PROCEDURE CODES FA211 ESTABILISHED PATIENT [facility] FACILITY CHARGE DISPOSITION & COMMUNICATION FOLLOW UP POSTPROCEDURE/FOLLOW-UP PHYSICAL THERAPY REFERRAL (REASON: WORKMEN'S COMP REQUEST TRIGGER POINT INJECTIONS NECK RIGHT SHOULDER) ELECTRONICALLY SIGNED BY LEAH STERLING ON 09/11/2020 AT 02:18 PM EST DISCLAIMER : THIS IS A VISIT SUMMARY EXTRACTED FROM THE [employer] CHART. IT IS NOT A COPY OF THE [employer] PROGRESS NOTE. NIRAV
== END ==
LOC: M PAIN 13:00
PROVIDERS: ATTEND Nurse Practitioner Family
DX: M79.18 Myalgia, other site (principal); E11.9 Type 2 diabetes mellitus without complications; Z91.013 Allergy to seafood; E66.01 Morbid (severe) obesity due to excess calories; Z68.41 Body mass index [BMI] 40.0-44.9, adult; Z79.84 Long term (current) use of oral hypoglycemic drugs; Z79.899 Other long term (current) drug therapy

== ENCOUNTER → 2020-09-19 | Outpatient (CLI) | payer OTHER ==
[~2020-09-19] MED LIST changes: +MONT10TA10 PO; -MONT5TAB2 PO
== END ==
LOC: M LABSMTC 09:45
PROVIDERS: ATTEND Anesthesiology
DX: Z20.822 Contact with and (suspected) exposure to COVID-19 (principal)

== ENCOUNTER → 2020-09-24 | Outpatient (CLI) | payer OTHER ==
[~2020-09-24] MED LIST changes: +BUPIVACAINE HCL 0.25% 10ML VIAL As Ordered ONE; +BUPIVACAINE HCL 0.25% 30ML VIAL As Ordered ONE; +TRIAMCINOLONE ACETONIDE SUSP 40 MG/ML VIAL (J3301) As Ordered ONE
--- NOTE | 2020-10-02 01:52 | ECWPNPC ---
PATIENT NAME: EDNA KEITH : 1970 GENDER: MALE VISIT DATE: 09/24/2020 DISCHARGE DATE: 09/24/20 1211 VISIT LOCKED DATE TIME: PHYSICIAN: NIKOLAY GUAMAN MD RESOURCE: NIKOLAY GUAMAN MD REASON FOR APPOINTMENT 1. TRIGGER POINT INJECTIONS BILATERAL NECK AND RIGHT SHOULDER HISTORY OF PRESENT ILLNESS GENERAL: -. FALL RISK SCREENING: SCREENING :NO FALLS REPORTED IN THE LAST YEAR PAIN SCREENING: PATIENT HAS A COMPLAINT OF ACUTE OR CHRONIC PAIN :YES LOCATION OF PAIN:NECK, LEFT SHOULDER, RIGHT SHOULDER INTENSITY OF PAIN (SCALE OF 1 TO 10):3 WHAT DOES YOUR PAIN FEEL LIKE:ACHING DURATION:CONTINOUS, CONSTANT PAIN IS INCREASED BY:ACTIVITIES PAIN IS DECREASED BY:USE OF PAIN MEDICATIONS NURSING NOTE: -. PAIN CENTER INTAKE QUESTIONS: DO YOU HAVE A HISTORY OF MRSA? :NO DO YOU TAKE A BLOOD THINNERS? :NO DO YOU HAVE ANY BLEEDING DISORDERS? :NO ANY NEW NUMBNESS OR WEAKNESS IN YOUR LEGS OR ARMS? :NO ANY PACEMAKER,DEFIBRILLATOR, OR DORSAL COLUMN STIMULATOR? :NO DO YOU HAVE ANY RASHES OR OPEN SORES? :NO ARE YOU ALLERGIC TO IV DYE? :NO SHELLFISH ARE YOU DIABETIC? :YES ANY NEW PROBLEMS WITH YOUR MEDICATIONS? :NO HAVE YOU RECEIVED A VACCINE IN THE PAST 30 DAYS? :NO DO YOU PLAN TO RECEIVE A VACCINE IN THE NEXT 21 DAYS? :NO DO YOU TAKE ANY IMMUNOSUPPRESSIVE MEDICATIONS? :NO ANY HISTORY OF SEIZURES? :NO ANY HISTORY OF CARDIAC ISSUES OR EVENTS? :NO DO YOU HAVE SLEEP APNEA? :NO ANY RECENT HEAD INJURY? :NO DO YOU HAVE ANY NEW INFECTIONS? :NO IS THERE A CHANCE YOU COULD BE ? :NO ARE YOU BREAST FEEDING? :NO WHEN DID YOU LAST EAT? : 09/23/20 10PM WHEN DID YOU LAST DRINK? : 09/24/20 0830 WHAT DID YOU LAST DRINK? : WATER NAME OF PERSON DRIVING YOU HOME? : DO YOU HAVE ANY OTHER QUESTIONS OR CONCERNS? : - CURRENT MEDICATIONS TAKING RAMIPRIL 10 MG CAPSULE ORAL TAKING MONTELUKAST SODIUM 10 MG TABLET ORAL TAKING OMEPRAZOLE 40 MG CAPSULE DELAYED RELEASE ORAL TAKING LEVOCETIRIZINE DIHYDROCHLORIDE 5 MG TABLET ORAL TAKING FLUTICASONE PROPIONATE 50 MCG/ACT SUSPENSION NASAL TAKING ATORVASTATIN CALCIUM 20 MG TABLET 1 TABLET ORALLY DAILY TAKING METFORMIN HCL ER 500 MG TABLET EXTENDED RELEASE 24 HOUR ORAL FOUR TIMES DAILY, NOTES: 09/23/20 TAKING FLEXERIL 10 MG 30 10 MG TABLETS ONE TABLET ORALLY EVERY 8 HOURS PRN PAIN TAKING IBUPROFEN 1 TAB ORAL EVERY 8 HOURS PRN TAKING BUPROPION HCL ER (XL) 300 MG TABLET EXTENDED RELEASE 24 HOUR 1 TABLET IN THE MORNING ORALLY ONCE A DAY TAKING JARDIANCE 10 MG TABLET 1 TABLET ORALLY ONCE A DAY, NOTES: 09/23/20 TAKING HYDROCODONE-ACETAMINOPHEN 5-325 MG TABLET 1 TABLET NEEDED ORALLY EVERY 6 HRS, NOTES: NONE LATELY NOT-TAKING OXYCODONE-ACETAMINOPHEN 325-5 MG TABLET 1 TABLET NEEDED ORALLY QHS NOT-TAKING ROBAXIN 500 MG TABLET 1.5 TABLETS ORALLY EVERY 4 HRS NOT-TAKING LIDODERM 5 % PATCH 1 PATCH REMOVE AFTER 12 HOURS EXTERNALLY ONCE A DAY NOT-TAKING INVOKANA 100 MG TABLET 1 TABLET BEFORE FIRST MEAL ORALLY ONCE A DAY MEDICATION LIST REVIEWED AND RECONCILED WITH THE PATIENT PAST MEDICAL HISTORY DIABETES TYPE II HYPERTENSION MULTIPLE BCC ALLERGIES SHELLFISH : UNKNOWN SOCIAL HISTORY GENERAL: TOBACCO USE ARE YOU A:NONSMOKER LATEX QUESTIONNAIRE LATEX ALLERGY : HAVE YOU EVER DEVELOPED ANY TYPE OF REACTION AFTER HANDLING LATEX PRODUCTS SUCH RUBBER GLOVES, CONDOMS, DIAPHRAGMS, BALLOONS, SOCKS, OR UNDERWEAR?NO LATEX ALLERGY : HAVE YOU EVER DEVELOPED ANY TYPE OF REACTION DURING OR AFTER DENTAL APPOINTMENT, VAGINAL/RECTAL EXAMINATION, SURGICAL PROCEDURE, OR ANY OTHER EXPOSURE?NO DATE ASKED : 09/11/2020 LATEX RISK : HAVE YOU EVER HAD ANY DIFFICULTY BREATHING OR HIVES AFTER EATING OR HANDLING ANY FRUITS, OR VEGETABLES; SUCH KIWI, BANANAS, STONE FRUITS, OR CHESTNUTSNO LATEX RISK : DO YOU HAVE A PREVIOUS PERSONAL HISTORY OF MORE THAN NINE SURGERIES, SPINA BIFIDA, OR REPEATED CATHERIZATIONS? NO LATEX RISK : ARE YOU FREQUENTLY EXPOSED TO LATEX PRODUCTS IN YOUR OCCUPATION?NO ALCOHOL USE: YES. OCCASSIONAL. RECREATIONAL DRUG USE DRUG USE?NO LEARNING BARRIERS / SPECIAL NEEDS BARRIERS TO LEARNING?NO HEARING IMPAIRED?NO VISION IMPAIRED?YES COGNITIVELY IMPAIRED?NO :CORRECTIVE LENSES READINESS TO LEARN?YES LEARNING PREFERENCES?NO LEARNING CAPABILITIES PRESENT?YES EMOTIONAL BARRIERS?NO SPECIAL DEVICES?NO DEPOSITION OPERATOR NEEDED?NO - HAS THE PATIENT BEEN EDUCATED REGARDING HIS/HER PLAN OF CARE?YES HAS THE PATIENT BEEN EDUCATED REGARDING PAIN, THE RISK FOR PAIN, THE IMPORTANCE OF EFFECTIVE PAIN MANAGEMENT, AND THE PAIN ASSESSMENT PROCESS?YES VITAL SIGNS WT 288.6 LBS, HT 70 IN, BMI 41.41 INDEX, BP 152/98 MM HG, HR 97 /MIN, RR 18 /MIN, TEMP 96.9 F, OXYGEN SAT % 94%, SAFE IN ENV? (Y/N) Y, NA INITIALS AW 1052, REVIEWED BY: EM. EXAMINATION GENERAL EXAMINATION: THE PATIENT IS ALERT, ORIENTED TIMES THREE AND COOPERATIVE. LUNGS ARE CLEAR TO AUSCULTATION. HEART SHOWS REGULAR RHYTHM, NO MURMURS AND NO GALLOPS. ASSESSMENTS MYALGIA, OTHER SITE - M79.18 (PRIMARY) TREATMENT MYALGIA, OTHER SITE COMPLETION OF PROCEDURAL VISIT WHEN MEETS CRITERIACHRISTO KUMAR 09/24/2020 12:13:52 PM > CRITERIA MET PROCEDURES PAIN NURSING RECORD PROCEDURE IN ROOM 1045, PHYSICIAN IN ROOM 1150, START 1154, FINISH 1157, PHYSICIAN OUT OF ROOM 1158, OUT OF ROOM 1211, ECG N/A, PATIENT SHIELDED N/A, SAFETY STRAP N/A, PREP ALCOHOL DR GUAMAN, DRESSING TEGADERM Maricruz KUMAR, UTILITY ASSEMBLER LOC: 1. ALERT, ORIENTED, CHRISTO KUMAR 09/24/2020 12:10:53 PM > RESP: 1. REGULAR, NO DYSPNEA, CHRISTO KUMAR 09/24/2020 12:10:58 PM > COLOR: 1. PINK, CHRISTO KUMAR 09/24/2020 12:10:02 PM > SKIN: 1. WARM, DRY, CHRISTO KUMAR 09/24/2020 12:10:05 PM > POSITION: 5. SITTING, CHRISTO KUMAR 09/24/2020 12:10:11 PM > VITALS: 140/92, 85, 16, 97%, CHRISTO KUMAR 09/24/2020 12:10:32 PM > NOTES Patricia KUMAR RN COMPLETION OF PROCEDURE APPOINTMENT: POST PAIN 0, DRESSING SITE DRY AND INTACT, IV N/A, GAIT STEADY, TEACHING COMPLETED, PATIENT ACKNOWLEDGES UNDERSTANDING YES, PROCEDURE APPOINTMENT COMPLETED AT 1211 PN WORKMANS' COMP OPINION IN YOUR OPINION, WAS THE INCIDENT THAT THE PATIENT DESCRIBED THE COMPETENT MEDICAL CAUSE OF THIS INJURY/ILLNESS? YES ARE THE PATIENT'S COMPLAINTS CONSISTENT WITH HIS/HER HISTORY OF THE INJURY/ILLNESS? YES IS THE PATIENT'S HISTORY OF THE INJURY/ILLNESS CONSISTENT WITH YOUR OBJECTIVE FINDING? YES WHAT IS THE PERCENTAGE OF TEMPORARY IMPAIRMENT? MODERATE TO MARKED = 66.7% . IS THE PATIENT WORKING? NO . DOCTOR ON SITE: NIKOLAY GUSTAFSON MD PN TRIGGER POINT INJECTION WITH STEROIDS PRE PROCEDURE DIAGNOSIS 1. MYALGIA 2. PAIN AT BILATERAL NECK AREA AND RIGHT SHOULDER AREA POST PROCEDURE DIAGNOSIS 1. MYALGIA 2. PAIN AT BILATERAL NECK AREA AND RIGHT SHOULDER AREA. PROCEDURE TRIGGER POINT INJECTION AT BILATERAL NECK AREA AND RIGHT SHOULDER AREA. SURGEON DR. NIKOLAY GUAMAN FIELD MARKETING TEAM LEADER NONE ANESTHESIA LOCAL PRE PROCEDURE NOTE THE PATIENT HAS A HISTORY OF CHRONIC PAIN AT THE RIGHT AND LEFT NECK AREA AND RIGHT SHOULDER AREA. I EVALUATED THE PATIENT AND REVIEWED THE CHART. THERE IS EVIDENCE OF BANDS OF TISSUE WITH RESTRICTION OF MOVEMENT AND PRESENCE OF TRIGGER POINT AT THE RIGHT AND LEFT NECK AREA AND RIGHT SHOULDER AREA. I WENT OVER THE RISKS, ALTERNATIVES, AND BENEFITS ASSOCIATED WITH THIS PROCEDURE. THE PATIENT WOULD LIKE TO PROCEED AND GIVE CONSENT TO PERFORMED THE PROCEDURE. THE PATIENT DENIES UNEXPLAINABLE WEIGHT LOSS, FEVER, CHILLS, OR NEW CHANGES IN URINARY OR BOWEL CONTROL. PATIENT IS COVID-19 NEGATIVE. DESCRIPTION OF PROCEDURE THE PATIENT WAS BROUGHT TO THE PROCEDURE ROOM AND PLACED IN THE SITTING POSITION. THE AREA WAS CLEANED WITH ALCOHOL. THE PROCEDURE WAS DONE USING ASEPTIC STERILE TECHNIQUE. A TIMEOUT WAS PERFORMED WHERE THE CONSENTED SITE WAS VERIFIED WITH EVERYONE IN THE ROOM. USING A 25-GAUGE NEEDLE, TRIGGER POINTS WERE INJECTED AT THE RIGHT AND LEFT NECK AREA AND RIGHT SHOULDER AREA WITH A TOTAL OF 40 ML OF BUPIVACAINE 0.25% AND KENALOG 40 MG. THE MEDICATIONS WERE VERIFIED WITH THE NURSE. THERE WAS NO EVIDENCE OF BLOOD OR PARESTHESIA DURING THE PROCEDURE. THE PATIENT WAS SENT TO THE RECOVERY ROOM. THE PATIENT WAS MOVING THE EXTREMITIES AND DOING WELL. THERE WERE NO COMPLICATIONS DURING THE PROCEDURE. ESTIMATED BLOOD LOSS WAS LESS THAN 5 ML, POST PROCEDURE NOTE THE PROCEDURE DONE WAS DISCUSSED WITH THE PATIENT. THE PATIENT WILL BE SEEN IN A FOLLOW UP IN THE NEXT FEW WEEKS. I AM LOOKING FOR LONG LASTING PAIN RELIEF FOR THE PATIENT WITH THIS INTERVENTION. INSTRUCTIONS WERE GIVEN, QUESTIONS WERE ANSWERED, AND THE PATIENT EXPRESSED UNDERSTANDING AND AGREES WITH THE PLAN. I, LIANNE ORNELAS, DOCUMENTED THE ABOVE INFORMATION ACTING A SCRIBE FOR DR. GUAMAN. I HAVE REVIEWED THE ABOVE DOCUMENT, WRITTEN BY LIANNE ORNELAS, TEACHER OF THE DEAF/HARD OF HEARING, AND I VERIFY THAT IT IS ACCURATE PROCEDURE CODES 17557 INJECT TRIGGER POINTS 3/> DISPOSITION & COMMUNICATION FOLLOW UP FOLLOW UP WITH BAND SAWYER. (REASON: POST TRIGGER POINT INJECTIONS BILATERAL NECK AREA AND RIGHT SHOULDER.) ELECTRONICALLY SIGNED BY NIKOLAY GUAMAN MD, ON 10/01/2020 AT 02:48 PM EST DISCLAIMER : THIS IS A VISIT SUMMARY EXTRACTED FROM THE [employer] CHART. IT IS NOT A COPY OF THE [employer] PROGRESS NOTE. NIRAV
== END ==
LOC: M PAIN 10:40
PROVIDERS: ATTEND Anesthesiology
DX: M79.18 Myalgia, other site (principal); E11.9 Type 2 diabetes mellitus without complications; I10 Essential (primary) hypertension; Z79.84 Long term (current) use of oral hypoglycemic drugs; Z79.891 Long term (current) use of opiate analgesic; Z79.899 Other long term (current) drug therapy; Z91.013 Allergy to seafood
CPT/HCPCS: 20553; J3301

== ENCOUNTER → 2020-10-08 | Outpatient (CLI) | payer OTHER ==
[~2020-10-08] MED LIST changes: -BUPIVACAINE HCL 0.25% 10ML VIAL As Ordered ONE; -BUPIVACAINE HCL 0.25% 30ML VIAL As Ordered ONE; -TRIAMCINOLONE ACETONIDE SUSP 40 MG/ML VIAL (J3301) As Ordered ONE
--- NOTE | 2020-10-15 03:08 | ECWPNPC ---
PATIENT NAME: EDNA KEITH : 1970 GENDER: MALE VISIT DATE: 10/08/2020 DISCHARGE DATE: 10/08/20 1442 VISIT LOCKED DATE TIME: PHYSICIAN: CAMILO MOYA PHYSICIAN PAGER NO: ACTIVE RESOURCE: CAMILO MOYA REASON FOR APPOINTMENT 1. POST TRIGGER POINT INJECTIONS NECK RIGHT SHOULDER HISTORY OF PRESENT ILLNESS GENERAL: HERE FOR POST PROCEDURE FOLLOW-UP. THIS IS A WORK RELATED INJURY. HAD TRIGGER POINT INJECTIONS BILATERAL NECK AND SHOULDER ON 09/24/2020. REPORTING MARKED REDUCTION IN PAIN AND IMPROVED MOBILITY THAT CONTINUES TODAY. STATES HE'S HAVING LESS TENSION HEADACHES UPON AWAKENING IN THE MORNING. 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 COMPUTER WORK WITH LESS PAIN SINCE TRIGGER POINT INJECTIONS. HE IS UNABLE TO GET PHYSICAL THERAPY THAT WE HAD ORDERED AT INITIAL VISIT. HE WENT TO A FACILITY IN [place] THAT DOESNT DO MYOFASCIAL RELEASE TECHNIQUE THAT WE ORDERED.PATIENT WOULD LIKE TO TRANSFER PT TO FACILITY IN [place], [place] THAT IS ABLE TO PERFORM PT WE HAD ORDERED. -. FALL RISK SCREENING: SCREENING : NO FALLS REPORTED IN THE LAST YEAR. PAIN SCREENING: PATIENT HAS A COMPLAINT OF ACUTE OR CHRONIC PAIN :YES LOCATION OF PAIN:NECK, LEFT SHOULDER, RIGHT SHOULDER INTENSITY OF PAIN (SCALE OF 1 TO 10):2 WHAT DOES YOUR PAIN FEEL LIKE:ACHING, BURNING DURATION:CONTINOUS, CONSTANT PAIN IS INCREASED BY:ACTIVITIES PAIN IS DECREASED BY:USE OF PAIN MEDICATIONS NURSING NOTE: -. PAIN CENTER INTAKE QUESTIONS: DO YOU HAVE A HISTORY OF MRSA? :NO DO YOU TAKE A BLOOD THINNERS? :NO DO YOU HAVE ANY BLEEDING DISORDERS? :NO ANY NEW NUMBNESS OR WEAKNESS IN YOUR LEGS OR ARMS? :NO ANY PACEMAKER,DEFIBRILLATOR, OR DORSAL COLUMN STIMULATOR? :NO DO YOU HAVE ANY RASHES OR OPEN SORES? :NO ARE YOU ALLERGIC TO IV DYE? :NO ARE YOU DIABETIC? :YES ANY NEW PROBLEMS WITH YOUR MEDICATIONS? :NO HAVE YOU RECEIVED A VACCINE IN THE PAST 30 DAYS? :NO DO YOU PLAN TO RECEIVE A VACCINE IN THE NEXT 21 DAYS? :NO DO YOU NEED ANY PRESCRIPTION? :NO DO YOU TAKE ANY IMMUNOSUPPRESSIVE MEDICATIONS? :NO DO YOU HAVE ANY KIDNEY OR LIVER DISEASE? :NO IS THERE A CHANCE YOU COULD BE ? :NO ARE YOU BREAST FEEDING? :NO CURRENT MEDICATIONS TAKING RAMIPRIL 10 MG CAPSULE ORAL TAKING MONTELUKAST SODIUM 10 MG TABLET ORAL TAKING OMEPRAZOLE 40 MG CAPSULE DELAYED RELEASE ORAL TAKING LEVOCETIRIZINE DIHYDROCHLORIDE 5 MG TABLET ORAL TAKING FLUTICASONE PROPIONATE 50 MCG/ACT SUSPENSION NASAL TAKING ATORVASTATIN CALCIUM 20 MG TABLET 1 TABLET ORALLY DAILY TAKING METFORMIN HCL ER 500 MG TABLET EXTENDED RELEASE 24 HOUR ORAL FOUR TIMES DAILY, NOTES: 09/23/20 TAKING FLEXERIL 10 MG 30 10 MG TABLETS ONE TABLET ORALLY EVERY 8 HOURS PRN PAIN TAKING IBUPROFEN 1 TAB ORAL EVERY 8 HOURS PRN TAKING BUPROPION HCL ER (XL) 300 MG TABLET EXTENDED RELEASE 24 HOUR 1 TABLET IN THE MORNING ORALLY ONCE A DAY TAKING JARDIANCE 10 MG TABLET 1 TABLET ORALLY ONCE A DAY, NOTES: 09/23/20 TAKING HYDROCODONE-ACETAMINOPHEN 5-325 MG TABLET 1 TABLET NEEDED ORALLY EVERY 6 HRS, NOTES: NONE LATELY NOT-TAKING OXYCODONE-ACETAMINOPHEN 325-5 MG TABLET 1 TABLET NEEDED ORALLY QHS NOT-TAKING ROBAXIN 500 MG TABLET 1.5 TABLETS ORALLY EVERY 4 HRS NOT-TAKING LIDODERM 5 % PATCH 1 PATCH REMOVE AFTER 12 HOURS EXTERNALLY ONCE A DAY NOT-TAKING INVOKANA 100 MG TABLET 1 TABLET BEFORE FIRST MEAL ORALLY ONCE A DAY MEDICATION LIST REVIEWED AND RECONCILED WITH THE PATIENT PAST MEDICAL HISTORY DIABETES TYPE II HYPERTENSION MULTIPLE BCC ALLERGIES SHELLFISH : UNKNOWN SOCIAL HISTORY GENERAL: TOBACCO USE ARE YOU A:NONSMOKER LATEX QUESTIONNAIRE LATEX ALLERGY : HAVE YOU EVER DEVELOPED ANY TYPE OF REACTION AFTER HANDLING LATEX PRODUCTS SUCH RUBBER GLOVES, CONDOMS, DIAPHRAGMS, BALLOONS, SOCKS, OR UNDERWEAR?NO LATEX ALLERGY : HAVE YOU EVER DEVELOPED ANY TYPE OF REACTION DURING OR AFTER DENTAL APPOINTMENT, VAGINAL/RECTAL EXAMINATION, SURGICAL PROCEDURE, OR ANY OTHER EXPOSURE?NO DATE ASKED : 09/11/2020 LATEX RISK : HAVE YOU EVER HAD ANY DIFFICULTY BREATHING OR HIVES AFTER EATING OR HANDLING ANY FRUITS, OR VEGETABLES; SUCH KIWI, BANANAS, STONE FRUITS, OR CHESTNUTSNO LATEX RISK : DO YOU HAVE A PREVIOUS PERSONAL HISTORY OF MORE THAN NINE SURGERIES, SPINA BIFIDA, OR REPEATED CATHERIZATIONS? NO LATEX RISK : ARE YOU FREQUENTLY EXPOSED TO LATEX PRODUCTS IN YOUR OCCUPATION?NO ALCOHOL USE: YES. OCCASSIONAL. RECREATIONAL DRUG USE DRUG USE?NO LEARNING BARRIERS / SPECIAL NEEDS BARRIERS TO LEARNING?NO HEARING IMPAIRED?NO VISION IMPAIRED?YES COGNITIVELY IMPAIRED?NO :CORRECTIVE LENSES READINESS TO LEARN?YES LEARNING PREFERENCES?NO LEARNING CAPABILITIES PRESENT?YES EMOTIONAL BARRIERS?NO SPECIAL DEVICES?NO BODY SANDER NEEDED?NO - HAS THE PATIENT BEEN EDUCATED REGARDING HIS/HER PLAN OF CARE?YES HAS THE PATIENT BEEN EDUCATED REGARDING PAIN, THE RISK FOR PAIN, THE IMPORTANCE OF EFFECTIVE PAIN MANAGEMENT, AND THE PAIN ASSESSMENT PROCESS?YES REVIEW OF SYSTEMS CONSTITUTIONAL: ANY RECENT FEVER NO . CHILLS NO . WEIGHT CHANGE OF UNKNOWN REASONS NO . GASTROENTEROLOGY: NEW UNEXPLAINABLE CHANGES IN BOWEL CONTROL NO . CONSTIPATION NO . GENITOURINARY: ANY NEW CHANGE IN BLADDER CONTROL? NO . NEUROLOGY: NEW ONSET DIZZINESS OR NEUROLOGICAL CHANGES NOT MENTIONED NO . NEW NUMBNESS OR PAIN PATTERNS NOT MENTIONED AND PERTINENT TO TODAY'S VISIT NO . CARDIOLOGY: NEW CHEST PRESSURE NO . PATIENT DENIES NO . RESPIRATORY: UNEXPLAINABLE COUGH NO . NEW SHORTNESS OF BREATH NO . VITAL SIGNS WT 284 LBS, HT 70 IN, BMI 40.75 INDEX, BP 139/90 MM HG, HR 105 /MIN, RR 18 /MIN, TEMP 96.9 F, OXYGEN SAT % 97%, SAFE IN ENV? (Y/N) Y, NA INITIALS UT 14:08, REVIEWED BY: ROXANNA. EXAMINATION GENERAL EXAMINATION: GENERAL ALERT,NO DISTRESS . PSYCH AFFECT NORMAL . LUNGS: LUNG SOUNDS ARE CLEAR . HEART: HEART RATE REGULAR . ASSESSMENTS OTHER CHRONIC PAIN - G89.29 (PRIMARY) MYALGIA, OTHER SITE - M79.18 TREATMENT OTHER CHRONIC PAIN PAIN PROCEDURE LOGDATE OF PROCEDURE09/24/20PROCEDURE:TRIGER POINT INJECTION TO BILATERAL NECK AND RIGHT SHOULDER WITH KENALOG 40MGAMOUNT OF PRE SEDATE0/0RESULT:MARKED REDUCTION IN PAIN AND IMPROVED FUNCTIONAL ABILITY POST PROCED[facility]2X[facility] X 6 WKS,MYOFASCIAL RELEASE,MASSAGE PROCEDURES PN WORKMANS' COMP OPINION IN YOUR OPINION, WAS THE INCIDENT THAT THE PATIENT DESCRIBED THE COMPETENT MEDICAL CAUSE OF THIS INJURY/ILLNESS? YES ARE THE PATIENT'S COMPLAINTS CONSISTENT WITH HIS/HER HISTORY OF THE INJURY/ILLNESS? YES IS THE PATIENT'S HISTORY OF THE INJURY/ILLNESS CONSISTENT WITH YOUR OBJECTIVE FINDING? YES WHAT IS THE PERCENTAGE OF TEMPORARY IMPAIRMENT? MODERATE TO MARKED = 66.7% IS THE PATIENT WORKING? NO DOCTOR ON SITE: NIKOLAY GUSTAFSON MD PROCEDURE CODES FA211 ESTABILISHED PATIENT [facility] FACILITY CHARGE DISPOSITION & COMMUNICATION FOLLOW UP 2 MONTHS (REASON: F/U W/C PT-NEEDS NEW PT LOCATION APPROVED PER W/C) ELECTRONICALLY SIGNED BY LEAH STERLING ON 10/14/2020 AT 04:59 PM EST DISCLAIMER : THIS IS A VISIT SUMMARY EXTRACTED FROM THE [employer] CHART. IT IS NOT A COPY OF THE [employer] PROGRESS NOTE. UGOD
== END ==
LOC: M PAIN 13:45
PROVIDERS: ATTEND Nurse Practitioner Family
DX: G89.29 Other chronic pain (principal); M79.18 Myalgia, other site; E11.9 Type 2 diabetes mellitus without complications; I10 Essential (primary) hypertension; Z85.828 Personal history of other malignant neoplasm of skin; Z79.84 Long term (current) use of oral hypoglycemic drugs; Z79.899 Other long term (current) drug therapy; Z91.013 Allergy to seafood

== ENCOUNTER → 2020-11-07 | Outpatient (REF) | payer MEDICARE ==
[2020-11-07 12:59] LABS: HEMATOCRIT 46.2 % (42.0-52.0); MEAN CORPUSCULAR HEMOGLOBIN 30.8 pg (27.0-33.0); MEAN CORPUSCULAR HGB CONC 34.6 g/dl (32.0-36.5); PLATELET COUNT, AUTOMATED 261 10^3/uL (150-450); RED BLOOD COUNT 5.19 10^6/uL (4.30-6.10); WHITE BLOOD COUNT 8.7 10^3/uL (4.0-10.0)
[2020-11-07 13:35] LABS: ALBUMIN 3.7 GM/DL (3.2-5.2); ALT/SGPT 101 U/L (12-78); BILIRUBIN,TOTAL 0.4 MG/DL (0.2-1.0); BLOOD UREA NITROGEN 13 MG/DL (7-18); CARBON DIOXIDE LEVEL 25 MEQ/L (21-32); CHLORIDE LEVEL 102 MEQ/L (98-107); CHOLESTEROL LEVEL 128 MG/DL (<200); CREATININE FOR GFR 0.87 MG/DL (0.70-1.30); FREE T4 1.13 NG/DL (0.76-1.46); GLOMERULAR FILTRATION RATE > 60.0 (>56); GLUCOSE, FASTING 248 MG/DL (70-100); HDL CHOLESTEROL 40 MG/DL (>40); LDL CHOLESTEROL 38 MG/DL (<100); NON-HDL-C 88 MG/DL; POTASSIUM SERUM 4.5 MEQ/L (3.5-5.1); SODIUM LEVEL 135 MEQ/L (136-145); TOTAL PROTEIN 6.9 GM/DL (6.4-8.2); TRIGLYCERIDES LEVEL 250 MG/DL (<150); VITAMIN B12 LEVEL 1147 PG/ML
[2020-11-07 13:36] LABS: FOLATE 10.8 NG/ML
[2020-11-07 14:41] LABS: MALB URINE SIEMENS 13.4 MG/L; MAU/CREAT RATIO 12.8 MCG/MG (0.0-30.0)
[2020-11-07 16:08] LABS: HEMOGLOBIN A1c 10.2 %
== END ==
LOC: M SFHCADAM 10:52
PROVIDERS: ATTEND Physician Assistant
DX: I10 Essential (primary) hypertension (principal); E11.9 Type 2 diabetes mellitus without complications; E78.00 Pure hypercholesterolemia, unspecified

== ENCOUNTER → 2020-11-27 | Outpatient (REF) | payer MEDICARE | LOC: M LAB REF 17:11 | PROVIDERS: ATTEND Physician Assistant | DX: L57.0 Actinic keratosis (principal) | CPT/HCPCS: 11102; 88305; G0463 ==

== ENCOUNTER → 2020-12-09 | Outpatient (CLI) | payer OTHER, MEDICARE ==
--- NOTE | 2020-12-12 04:56 | ECWPNPC ---
PATIENT NAME: ENDA KEITH : 1970 GENDER: MALE VISIT DATE: 12/09/2020 DISCHARGE DATE: 12/09/20 1518 VISIT LOCKED DATE TIME: PHYSICIAN: CAMILO MOYA PHYSICIAN PAGER NO: ACTIVE RESOURCE: CAMILO MOYA REASON FOR APPOINTMENT 1. F/U W/C PT-NEEDS NEW PT LOCATION APPROVED PER W/C 2. [facility] [place] PHYSICAL THERAPY HISTORY OF PRESENT ILLNESS GENERAL: HERE FOR FOLLOW-UP OF PERSISTENT NECK PAIN. THIS IS A WORK RELATED INJURY. CURRENTLY ATTENDING PHYSICAL THERAPY FOR MYOFASCIAL RELEASE AND REPORTING MARKED REDUCTION IN PAIN AND IMPROVED ACTIVITY TOLERANCE SINCE ATTENDING. HE STILL HAS A FEW MORE WEEKS LEFT. PATIENT FEELS THAT TRIGGER POINT INJECTIONS HE HAD INITIALLY ALONG WITH THE PHYSICAL THERAPY HAS MADE A VERY BIG DIFFERENCE IN HIS ABILITY TO TOLERATE ACTIVITIES AND USE HIS ARMS AND MOVE HIS NECK WITHOUT PAIN. HAS BENEFITED FROM TENS UNIT THERAPY AT PHYSICAL THERAPY AND WOULD LIKE TO HAVE A HOME UNIT FOR PAIN CONTROL. WE CAN REQUEST THIS FROM PHYSICAL THERAPY WITH WORKMEN'S COMP APPROVAL IF NECESSARY. PATIENT STATES PHYSICAL THERAPIST HAS DOCUMENTED SIGNIFICANT IMPROVEMENT WITH USE OF TENS UNIT. -. FALL RISK SCREENING: SCREENING : NO FALLS REPORTED IN THE LAST YEAR. PAIN SCREENING: PATIENT HAS A COMPLAINT OF ACUTE OR CHRONIC PAIN :YES LOCATION OF PAIN:NECK INTENSITY OF PAIN (SCALE OF 1 TO 10):1 WHAT DOES YOUR PAIN FEEL LIKE:ACHING, CONTINOUS DURATION:CONTINOUS, CONSTANT, ALL DAY PAIN IS INCREASED BY:ACTIVITIES PAIN IS DECREASED BY:USE OF PAIN MEDICATIONS, OTHERS GOING TO PHYSICAL THERAPY NURSING NOTE: -. PAIN CENTER INTAKE QUESTIONS: DO YOU HAVE A HISTORY OF MRSA? :NO DO YOU TAKE A BLOOD THINNERS? :NO DO YOU HAVE ANY BLEEDING DISORDERS? :NO ANY NEW NUMBNESS OR WEAKNESS IN YOUR LEGS OR ARMS? :NO ANY PACEMAKER,DEFIBRILLATOR, OR DORSAL COLUMN STIMULATOR? :NO DO YOU HAVE ANY RASHES OR OPEN SORES? :NO ARE YOU ALLERGIC TO IV DYE? :NO ARE YOU DIABETIC? :YES ANY NEW PROBLEMS WITH YOUR MEDICATIONS? :NO HAVE YOU RECEIVED A VACCINE IN THE PAST 30 DAYS? :YES 2ND COVID 11/28/2020 DO YOU PLAN TO RECEIVE A VACCINE IN THE NEXT 21 DAYS? :NO DO YOU NEED ANY PRESCRIPTION? :NO DO YOU TAKE ANY IMMUNOSUPPRESSIVE MEDICATIONS? :NO DO YOU HAVE ANY KIDNEY OR LIVER DISEASE? :NO IS THERE A CHANCE YOU COULD BE ? :NO ARE YOU BREAST FEEDING? :NO CURRENT MEDICATIONS TAKING PIOGLITAZONE HCL 30 MG TABLET 1 TABLET ORALLY ONCE A DAY TAKING ASPIRIN 81 MG TABLET CHEWABLE 1 TABLET ORALLY ONCE A DAY TAKING VITAMIN D 50 MCG (2000 UT) CAPSULE 1 CAPSULE ORALLY ONCE A DAY TAKING MONTELUKAST SODIUM 10 MG TABLET ORAL TAKING LEVOCETIRIZINE DIHYDROCHLORIDE 5 MG TABLET ORAL TAKING FLUTICASONE PROPIONATE 50 MCG/ACT SUSPENSION NASAL TAKING FLEXERIL 10 MG 30 10 MG TABLETS ONE TABLET ORALLY EVERY 8 HOURS PRN PAIN TAKING IBUPROFEN 1 TAB ORAL EVERY 8 HOURS PRN TAKING HYDROCODONE-ACETAMINOPHEN 5-325 MG TABLET 1 TABLET NEEDED ORALLY EVERY 6 HRS, NOTES: NONE LATELY TAKING OMEPRAZOLE 40 MG CAPSULE DELAYED RELEASE 1 CAP ORAL DAILY TAKING BUPROPION HCL ER (XL) 300 MG TABLET EXTENDED RELEASE 24 HOUR 1 TABLET IN THE MORNING ORALLY ONCE A DAY TAKING ATORVASTATIN CALCIUM 20 MG TABLET 1 TABLET ORALLY DAILY TAKING RAMIPRIL 10 MG CAPSULE 1 CAPSULE ORAL ONCE A DAY NOT-TAKING FLUOROURACIL 5 % CREAM 1 APPLICATION EXTERNALLY TWICE A DAY TO AREA ON SCALP X 2 WEEKS NOT-TAKING TRULICITY 0.75 MG/0.5ML SOLUTION PEN-INJECTOR 0.75 MG SUBCUTANEOUSLY WEEKLY MEDICATION LIST REVIEWED AND RECONCILED WITH THE PATIENT PAST MEDICAL HISTORY DIABETES TYPE II HYPERTENSION MULTIPLE BASAL CELL [employer] WORKER'S COMP - INJURED AT WORK -FOLLOWS WITH PAIN CLINIC FOR CHRONIC NECK PAIN ALLERGIC RHINNITIS VITAMIN D DEFICIENCY ALLERGIES SHELLFISH : NAUSE - SIDE EFFECTS SOCIAL HISTORY GENERAL: TOBACCO USE ARE YOU A:NONSMOKER LATEX QUESTIONNAIRE LATEX ALLERGY : HAVE YOU EVER DEVELOPED ANY TYPE OF REACTION AFTER HANDLING LATEX PRODUCTS SUCH RUBBER GLOVES, CONDOMS, DIAPHRAGMS, BALLOONS, SOCKS, OR UNDERWEAR?NO LATEX ALLERGY : HAVE YOU EVER DEVELOPED ANY TYPE OF REACTION DURING OR AFTER DENTAL APPOINTMENT, VAGINAL/RECTAL EXAMINATION, SURGICAL PROCEDURE, OR ANY OTHER EXPOSURE?NO LATEX RISK : HAVE YOU EVER HAD ANY DIFFICULTY BREATHING OR HIVES AFTER EATING OR HANDLING ANY FRUITS, OR VEGETABLES; SUCH KIWI, BANANAS, STONE FRUITS, OR CHESTNUTSNO LATEX RISK : DO YOU HAVE A PREVIOUS PERSONAL HISTORY OF MORE THAN NINE SURGERIES, SPINA BIFIDA, OR REPEATED CATHERIZATIONS? NO LATEX RISK : ARE YOU FREQUENTLY EXPOSED TO LATEX PRODUCTS IN YOUR OCCUPATION?NO DATE ASKED : 12/09/2020 ALCOHOL USE: YES. OCCASSIONAL. ALCOHOL SCREENING DID YOU HAVE A DRINK CONTAINING ALCOHOL IN THE PAST YEAR?YES HOW OFTEN DID YOU HAVE SIX OR MORE DRINKS ON ONE OCCASION IN THE PAST YEAR?NEVER (0 POINTS) HOW MANY DRINKS DID YOU HAVE ON A TYPICAL DAY WHEN YOU WERE DRINKING IN THE PAST YEAR?1 OR 2 (0 POINTS) HOW OFTEN DID YOU HAVE A DRINK CONTAINING ALCOHOL IN THE PAST YEAR?MONTHLY OR LESS (1 POINT) POINTS1 INTERPRETATIONNEGATIVE RECREATIONAL DRUG USE DRUG USE?NO LANGUAGE LANGUAGES SPOKEN:NAMIBIAN LEARNING BARRIERS / SPECIAL NEEDS CHANGE FROM LAST VISIT?NO BARRIERS TO LEARNING?NO HEARING IMPAIRED?NO VISION IMPAIRED?YES :CORRECTIVE LENSES READING COGNITIVELY IMPAIRED?NO READINESS TO LEARN?YES LEARNING PREFERENCES?NO LEARNING CAPABILITIES PRESENT?YES EMOTIONAL BARRIERS?NO SPECIAL DEVICES?NO ROUGE MIXER NEEDED?NO DOMESTIC VIOLENCE STATUS: CASH DO YOU FEEL SAFE IN YOUR ENVIRONMENT?YES OCCUPATION: RETIRED. DIET: REGULAR. EXERCISE: NO REGULAR EXERCISE. MARITAL STATUS: -CASH. OTHERS AT HOME: SPOUSE-CASH, CHILD-FRANCHESCA. - HAS THE PATIENT BEEN EDUCATED REGARDING HIS/HER PLAN OF CARE?YES HAS THE PATIENT BEEN EDUCATED REGARDING PAIN, THE RISK FOR PAIN, THE IMPORTANCE OF EFFECTIVE PAIN MANAGEMENT, AND THE PAIN ASSESSMENT PROCESS?YES REVIEW OF SYSTEMS CONSTITUTIONAL: ANY RECENT FEVER NO . CHILLS NO . WEIGHT CHANGE OF UNKNOWN REASONS NO . GASTROENTEROLOGY: NEW UNEXPLAINABLE CHANGES IN BOWEL CONTROL NO . CONSTIPATION NO . GENITOURINARY: ANY NEW CHANGE IN BLADDER CONTROL? NO . NEUROLOGY: NEW ONSET DIZZINESS OR NEUROLOGICAL CHANGES NOT MENTIONED NO . NEW NUMBNESS OR PAIN PATTERNS NOT MENTIONED AND PERTINENT TO TODAY'S VISIT NO . CARDIOLOGY: NEW CHEST PRESSURE NO . PATIENT DENIES NO . RESPIRATORY: UNEXPLAINABLE COUGH NO . NEW SHORTNESS OF BREATH NO . VITAL SIGNS WT 229 LBS, HT 70 IN, BMI 32.85 INDEX, BP 127/78 MM HG, HR 95 /MIN, RR 18 /MIN, TEMP 97.1 F, OXYGEN SAT % 93%, SAFE IN ENV? (Y/N) YEST.GABBY JACOB. EXAMINATION GENERAL EXAMINATION: GENERAL ALERT,NO DISTRESS . PSYCH AFFECT NORMAL . LUNGS: LUNG SOUNDS ARE CLEAR . HEART: HEART RATE REGULAR . ASSESSMENTS MYALGIA OF MUSCLE OF NECK - M79.18 (PRIMARY) MYALGIA, OTHER SITE - M79.18 TREATMENT MYALGIA OF MUSCLE OF NECK NOTES: CONTINUE FORMAL PHYSICAL THERAPY AND HOME STRETCHING EXERCISES. PHYSICAL THERAPY WILL CALL US TO RECOMMEND TENS UNIT AND WE CAN REQUEST FROM WORKMEN'S COMP WITH MORE DETAILS ON SPECIFIC UNIT THAT IS SO HELPFUL FOR HIM. FOLLOW-UP AT PAIN CENTER IS SCHEDULED IN 4 MONTHS. PROCEDURES PN WORKMANS' COMP OPINION IN YOUR OPINION, WAS THE INCIDENT THAT THE PATIENT DESCRIBED THE COMPETENT MEDICAL CAUSE OF THIS INJURY/ILLNESS? YES ARE THE PATIENT'S COMPLAINTS CONSISTENT WITH HIS/HER HISTORY OF THE INJURY/ILLNESS? YES IS THE PATIENT'S HISTORY OF THE INJURY/ILLNESS CONSISTENT WITH YOUR OBJECTIVE FINDING? YES WHAT IS THE PERCENTAGE OF TEMPORARY IMPAIRMENT? MODERATE TO MARKED = 66.7% IS THE PATIENT WORKING? YES DOCTOR ON SITE: NIKOLAY GUSTAFSON MD DISPOSITION & COMMUNICATION FOLLOW UP 4 MONTHS (REASON: NECK PAIN/WORKMEN'S COMP/CHECK ON PHYSICAL THERAPY/CHECK ON TENS UNIT) ELECTRONICALLY SIGNED BY LEAH STERLING ON 12/11/2020 AT 08:42 AM EDT DISCLAIMER : THIS IS A VISIT SUMMARY EXTRACTED FROM THE [employer] CHART. IT IS NOT A COPY OF THE [employer] PROGRESS NOTE. NIRAV
== END ==
LOC: M PAIN 14:45
PROVIDERS: ATTEND Nurse Practitioner Family
DX: M79.18 Myalgia, other site (principal); E11.9 Type 2 diabetes mellitus without complications; I10 Essential (primary) hypertension; J30.9 Allergic rhinitis, unspecified; E55.9 Vitamin D deficiency, unspecified; Z85.828 Personal history of other malignant neoplasm of skin; Z79.82 Long term (current) use of aspirin; Z79.891 Long term (current) use of opiate analgesic; Z79.899 Other long term (current) drug therapy; Z91.013 Allergy to seafood

== ENCOUNTER 2023-12-15 08:34 | Day surgery (SDC) | payer MEDICARE ==
[~2023-12-15] VITALS: Ht 180.3 cm; Wt 115.7 kg
[~2023-12-15 08:34] MED LIST changes: +ATOR1TAB19 PO; +ATOR1TAB21 PO; +BASA100I SC; +IBUP200C25 PO; -MONT10TA10 PO; +MONT10TA97 PO; +NEUR300C PO; -OMEP-221 PO; +OMEP40CA5 PO; +PIOG1TAB37 PO; -RAMI1CAP22 PO; +RAMI2.5C42 PO; +SEMA0.257 SQ; +propofoL 200 MG/20 ML VIAL As Ordered ONE; +propofoL 500 MG/50 ML VIAL As Ordered ONE
[2023-12-15] MEDS: NS 1,000 ML IV ONE (09:07)
[2023-12-15 10:08] VITALS: TEMP 97.7
[2023-12-15 10:25] VITALS: BP 132/76; O2SAT 97
== END 2023-12-15 10:32 | disposition home or self-care (01) ==
LOC: M OPP 08:34
PROVIDERS: ATTEND Internal Medicine Gastroenterology
DX: Z12.11 Encounter for screening for malignant neoplasm of colon (principal); Z12.12 Encounter for screening for malignant neoplasm of rectum; D12.8 Benign neoplasm of rectum; K57.30 Diverticulosis of large intestine without perforation or abscess without bleeding; K64.0 First degree hemorrhoids; E11.9 Type 2 diabetes mellitus without complications; I10 Essential (primary) hypertension; E78.00 Pure hypercholesterolemia, unspecified; Z85.828 Personal history of other malignant neoplasm of skin; Z79.899 Other long term (current) drug therapy; Z79.4 Long term (current) use of insulin; Z91.013 Allergy to seafood; Z91.041 Radiographic dye allergy status; Z79.84 Long term (current) use of oral hypoglycemic drugs; K21.9 Gastro-esophageal reflux disease without esophagitis

== ENCOUNTER → 2024-03-20 | Outpatient (REF) | payer MEDICARE ==
[~2024-03-20] MED LIST changes: -propofoL 200 MG/20 ML VIAL As Ordered ONE; -propofoL 500 MG/50 ML VIAL As Ordered ONE
== END ==
LOC: M SFHCDERM 18:06
PROVIDERS: ATTEND Nurse Practitioner Family
DX: C44.612 Basal cell carcinoma of skin of right upper limb, including shoulder (principal)

== ENCOUNTER → 2024-04-28 | Outpatient (REF) | payer MEDICARE | LOC: M SFHCDERM 17:07 | PROVIDERS: ATTEND Physician Assistant | DX: C44.91 Basal cell carcinoma of skin, unspecified (principal) ==

== ENCOUNTER → 2024-05-02 | Outpatient (REF) | payer MEDICARE | LOC: M SFHCDERM 13:15 | PROVIDERS: ATTEND Nurse Practitioner Family | DX: D49.2 Neoplasm of unspecified behavior of bone, soft tissue, and skin (principal) ==

== ENCOUNTER → 2024-11-15 | Outpatient (REF) | payer MEDICARE | LOC: M SFHCDERM 13:20 | PROVIDERS: ATTEND Nurse Practitioner Family | DX: C44.519 Basal cell carcinoma of skin of other part of trunk (principal) ==

== ENCOUNTER → 2024-11-23 | Outpatient (REF) | payer MEDICARE | LOC: M SFHCDERM 18:28 | PROVIDERS: ATTEND Physician Assistant | DX: C44.519 Basal cell carcinoma of skin of other part of trunk (principal) ==